=== PATIENT | male | born 1995 | race Caucasian/White ===

== ENCOUNTER 2024-04-03 12:32 | Emergency (ER) | payer SELFPAY ==
[~2024-04-03] VITALS: Ht 177.8 cm
[2024-04-03] MEDS ORDERED: CIPROFLOXACIN H10 ML OPH (13:32)
== END 2024-04-03 14:02 | disposition home or self-care (01) ==
LOC: ED 12:32
DX: H16.133 Photokeratitis, bilateral (principal); Z87.891 Personal history of nicotine dependence; W89.8XXA Exposure to other man-made visible and ultraviolet light, initial encounter; Y93.89 Activity, other specified; Y92.89 Other specified places as the place of occurrence of the external cause; Y99.8 Other external cause status

== ENCOUNTER 2025-02-06 18:42 | Emergency (ER) | payer SELFPAY ==
[~2025-02-06] VITALS: Ht 177.8 cm; Wt 63.5 kg
[~2025-02-06 18:42] MED LIST: CIPROFLOXACIN H10 ML OPH
[2025-02-06] MEDS ORDERED: IBUPROFEN 800 MG TAB PO ONE (19:15)
[2025-02-06] MEDS ORDERED: ERYTHROMYCIN 1 GM TUBE OPH ONE (19:15)
[2025-02-06] MEDS ORDERED: Bacitracin Zinc 14 GM TUBE T ONE (19:15)
[2025-02-06] MEDS ORDERED: MOTRIN IB200 M1 PO (19:57)
== END 2025-02-06 20:05 | disposition home or self-care (01) ==
LOC: ED 18:42
DX: T20.10XA Burn of first degree of head, face, and neck, unspecified site, initial encounter (principal); T31.0 Burns involving less than 10% of body surface; X02.8XXA Other exposure to controlled fire in building or structure, initial encounter; Y93.89 Activity, other specified; Y92.89 Other specified places as the place of occurrence of the external cause; Y99.8 Other external cause status

== ENCOUNTER 2025-05-06 11:40 | Emergency (ER) | payer SELFPAY ==
[~2025-05-06] VITALS: Ht 175.2 cm; Wt 63.5 kg
[~2025-05-06 11:40] MED LIST changes: +MOTRIN IB200 M1 PO
[2025-05-06] MEDS ORDERED: Acetaminophen/Oxycodone 5 MG/325 MG TABLET PO ONE (11:55)
[2025-05-06] MEDS ORDERED: Amoxicillin/Clavulanate Pota 875 MG TAB PO ONE (11:55)
[2025-05-06] MEDS ORDERED: MELOXICAM15 MG PO (11:56)
[2025-05-06] MEDS ORDERED: AMOX-CLAV 875-1 EACH PO (11:56)
== END 2025-05-06 12:28 | disposition home or self-care (01) ==
LOC: ED 11:40
DX: K04.7 Periapical abscess without sinus (principal); K02.9 Dental caries, unspecified